=== PATIENT | female | born 1990 | race Caucasian/White ===

== ENCOUNTER → 2019-10-23 | Outpatient (CLI) | payer BC ==
[~2019-10-23] MED LIST: BIMA5DRO2 TP; DEXT10TA23 PO; HYDR-2765 PO; LEVO1TAB38 PO
--- NOTE | 2019-10-23 13:51 | RAD ---
STUDY: MRI of the right knee without contrast INDICATION: Persistent right knee pain after a fall one year prior. COMPARISON: 09/23/2019 radiographs. TECHNIQUE: Multiplanar MR imaging of the right knee performed without the use of intravenous or intra-articular contrast. FINDINGS: Menisci: Intact. Cruciate ligaments: Intact. Collateral ligaments: Unremarkable medial and lateral collateral ligament structures. The IT band is normal. Intact retinacula. Tendons: The distal quadriceps and patellar tendon are intact. The additional tendons at the knee are unremarkable. Normal musculature signal and bulk. Cartilage: Patellofemoral: Very heterogeneous patellar cartilage with the subjacent bone plate exhibiting an irregular morphology as well such as seen on image 11 series 5. Subchondral marrow edema present as well mainly along the lower half of the median ridge. Full-thickness fissure seen on image 14 series 7 and there may be some deep delamination extending from this fissure as well. Lateral compartment: Intact. Medial compartment: Intact. Bones: No acute fracture or aggressive marrow signal abnormality. TT-TG distance measuring 1.5 cm. Borderline patella jerry with an Insall-Salvati ratio of just under 1.2. Miscellaneous: Small volume knee joint fluid. Linear low intensity signal focus at the lateral meniscotibial recess, image 12 series 8, does not appear to represent a loose body. Trace fluid within the prepatellar bursa with hypointense scarring overlying this bursa such as seen on image 16 series 6. IMPRESSION: 1. Intact menisci, cruciate ligaments and collateral ligaments. 2. Abnormally heterogeneous patellar cartilage most notably along the lower half of the median ridge with subchondral marrow edema. Full-thickness fissure at the median ridge, image 14 series 7, possibly with a deep delaminating component extending from this fissure as seen on image 11 series 5. No significant chondrosis seen elsewhere. 3. Borderline patella jerry. Within normal limits TT-TG distance. 4. Trace fluid within the prepatellar bursa with overlying scarring suggests prior trauma to this region. Electronically signed by: GAUTAM TINAJERO MD (10/23/2019 1:48 PM) [id number]
== END | disposition home or self-care (01) ==
LOC: MRI 08:36
PROVIDERS: ATTEND Orthopaedic Surgery
DX: M22.41 Chondromalacia patellae, right knee (principal); M70.41 Prepatellar bursitis, right knee; R60.0 Localized edema
CPT/HCPCS: 73721

== ENCOUNTER → 2019-12-06 | Outpatient (CLI) | payer BC | END | disposition home or self-care (01) | LOC: LAB 14:35 | PROVIDERS: ATTEND Orthopaedic Surgery | DX: Z20.828 Contact with and (suspected) exposure to other viral communicable diseases (principal) | CPT/HCPCS: U0003-CS ==

== ENCOUNTER → 2019-12-10 | Day surgery (SDC) | payer BC ==
[~2019-12-10] VITALS: Ht 6 cm; Wt 81.6 kg
[~2019-12-10] MED LIST changes: +BUPIVACAINE MPF 0.25% 30 ML VIAL. ONE; +BUPIVACAINE-EPI 0.5%-1:200000 MPF 30 ML VIAL. ONE; +DEXAMETHASONE SOD PHOS 4 MG/ML VIAL ONE; +EPINEPHrine VIAL 30 MG/30 ML VIAL ONE; +HYDROcodone/APAP 7.5/325MG 1 TAB TABLET PO PRN; +HYDROmorphone 2 MG/ML VIAL IV PRN; +IV RINGERS,LACTATED 1000ML 1,000 ML IV SCH; +KETOROLAC 30 MG/ML VIAL. ONE; +LIDOCAINE 1% PF 2 ML VIAL. ID PRN; +LIDOCAINE 2% PF 5 ML VIAL. ONE; +MIDAZOLAM HCL/PF 2 MG/2 ML VIAL. ONE; +MORPHINE SULFATE 2 MG/ML VIAL. IV PRN; +ONDANSETRON PF 4 MG/2 ML VIAL. IV PRN; +ONDANSETRON PF 4 MG/2 ML VIAL. ONE; +PROCHLORPERAZINE 10 MG/2 ML VIAL. IV PRN; +PROPOFOL 10 MG/ML (20ML) VIAL. IV ONE; +SEVOFLURANE 61 TO 120 MINUTES. IH ONE; +fentaNYL PF VIAL 100 MCG/2 ML VIAL IV PRN; +fentaNYL PF VIAL 100 MCG/2 ML VIAL ONE
--- NOTE | 2019-12-10 13:51 | PDOC1 ---
History and Physical Date of Admission Date of Admission DATE: 12/10/19 TIME: 13:46 Identification/Chief Complaint Chief Complaint Right knee pain Source Source: Chart review, Patient History of Present Illness History of Present Illness This 29-year-old young lady injured her knee more than a year and a half ago. On my initial examination I felt like she had some underlying patellar malalignment (slight patella jerry and patellar tilt), but has caused an injury to the patellar cartilage and she has been treated nonoperatively for chondromalacia. Despite injections, physical therapy, and prolonged nonoperative treatment she still has pain, crepitus, and a theater sign. MRI shows chondromalacia, and slight patella jerry. There is underlying patellar malalignment. She is here today for arthroscopy and chondroplasty, and possible lateral release. Social History Smoke: No ALCOHOL: occassional Current Medications Current Medications Current Medications Ondansetron HCl (Zofran) 4 mg PRN Q6HRS PRN IV NAUSEA/VOMITING; Start 12/10/19 at 07:00; Stop 12/11/19 at 06:59 Fentanyl Citrate (Fentanyl 2ml Vial) 25 mcg PRN Q5MIN PRN IV MILD PAIN 1-3; Start 12/10/19 at 07:00; Stop 12/11/19 at 06:59 Fentanyl Citrate (Fentanyl 2ml Vial) 50 mcg PRN Q5MIN PRN IV MODERATE TO SEVERE PAIN; Start 12/10/19 at 07:00; Stop 12/11/19 at 06:59 Morphine Sulfate (Morphine Sulfate) 1 mg PRN Q10MIN PRN IV SEVERE PAIN 7-10; Start 12/10/19 at 07:00; Stop 12/11/19 at 06:59 Ringer's Solution 1,000 ml @ 30 mls/hr Q24H IV Last administered on 12/10/19at 12:27; Start 12/10/19 at 07:00; Stop 12/10/19 at 18:59 Lidocaine HCl (Xylocaine-Mpf 1% 2ml Vial) 2 ml PRN 1X PRN ID PRIOR TO IV START; Start 12/10/19 at 07:00; Stop 12/11/19 at 06:59 Hydromorphone HCl (Dilaudid) 0.5 mg PRN Q10MIN PRN IV SEV PAIN, Second choice; Start 12/10/19 at 07:00; Stop 12/11/19 at 06:59 Prochlorperazine Edisylate (Compazine) 5 mg PACU PRN PRN IV NAUSEA, MRX1; Start 12/10/19 at 07:00; Stop 12/11/19 at 06:59 Cefazolin Sodium/ Dextrose 50 ml @ 100 mls/hr 1X PREOP PRN IV PRIOR TO PROCEDURE; Start 12/10/19 at 06:00; Stop 12/10/19 at 18:00 Epinephrine HCl (Adrenalin) 30 mg STK-MED ONCE .ROUTE ; Start 12/10/19 at 11:42; Stop 12/10/19 at 11:42; Status DC Bupivacaine HCl (Sensorcaine Mpf 0.25%) 30 ml STK-MED ONCE .ROUTE ; Start at 11:42; Stop 12/10/19 at 11:42; Status DC Midazolam HCl (Versed) 2 mg STK-MED ONCE .ROUTE ; Start 12/10/19 at 13:13; Stop 12/10/19 at 13:13; Status DC Sevoflurane (Ultane) 60 ml STK-MED ONCE IH ; Start 12/10/19 at 13:13; Stop 12/10/19 at 13:13; Status DC Dexamethasone Sodium Phosphate (Decadron) 4 mg STK-MED ONCE .ROUTE ; Start 12/10/19 at 13:13; Stop 12/10/19 at 13:13; Status DC Propofol (Diprivan) 200 mg STK-MED ONCE IV ; Start 12/10/19 at 13:13; Stop 12/10/19 at 13:13; Status DC Lidocaine HCl (Lidocaine Pf 2% Vial) 5 ml STK-MED ONCE .ROUTE ; Start 12/10/19 at 13:13; Stop 12/10/19 at 13:13; Status DC Ondansetron HCl (Zofran) 4 mg STK-MED ONCE .ROUTE ; Start 12/10/19 at 13:13; Stop 12/10/19 at 13:14; Status DC Ketorolac Tromethamine (Toradol 30mg Vial) 30 mg STK-MED ONCE .ROUTE ; Start 12/10/19 at 13:13; Stop 12/10/19 at 13:14; Status DC Bupivacaine HCl/ Epinephrine Bitart (Sensorcain-Epi 0.5%-1:[id number] Mpf) 30 ml STK-MED ONCE .ROUTE ; Start 12/10/19 at 13:41; Stop 12/10/19 at 13:41; Status DC Active Scripts Active Reported Latisse (Bimatoprost) 5 Ml Drop.w.joanna 5 Ml TP HS Adderall 10 Mg Tablet (Dextroamphetamine/Amphetamine) 10 Mg Tablet 10 Mg PO PRN PRN Sronyx (Levonorgestrel-Eth Estradiol) 1 Each Tablet 1 Each PO HS Allergies Allergies: Coded Allergies: No Known Drug Allergies (Unverified , 12/10/19) Physical Exam General: Alert, Cooperative HEENT: Atraumatic Lungs: Normal air movement Heart: RRR Extremities: No cyanosis, No edema, Normal pulses, Other (The RIGHT knee shows normal alignment, no masses and trace effusion. There is tenderness at the m edial joint line and a positive medial Sherrell's test. The lateral joint line shows no tenderness. Range of motion is 0-135 degrees. There is trace patellofemoral crepitus. Prominent extraarticular bone, likely from heterotopic ossification from remote trauma. Sherrell's test is positive. There is medial joint line pain with deep flexion and especially with rotation of the tibia. The knee is stable to varus and valgus stress without subluxation or laxity. The ACL feels intact on Asher testing. Muscle strength is normal (5/5) for quadriceps and hamstrings, and muscle tone is normal. The skin shows a well healed scar but is otherwise normal with no rashes, lesions or ulcers. Light touch sensation is intact. No edema and no varicosities. Dorsalis pedis pulse is intact and capillary refill is normal) Skin: No significant lesion Neuro: Normal speech, Normal tone, Sensation intact Vitals Vitals Vital Signs Date Time Temp Pulse Resp B/P (MAP) Pulse Ox O2 Delivery O2 Flow Rate FiO2 12/10/19 12:21 98.2 63 16 98 98.2 12/10/19 12:19 123/86 Room Air Labs Labs Laboratory Tests Test 12/10/19 12:16 Bedside Urine HCG, Qualitative Hcg negative (Negative) Laboratory Tests Test 12/10/19 12:16 Bedside Urine HCG, Qualitative Hcg negative (Negative) Images Images [facility] [address] [place] [address] IMAGING REPORT Signed PATIENT: SUSHILA MILLER ACCOUNT: [id number] : 1990 LOCATION: MRI AGE: 29 SEX: F EXAM STATUS: REG CLI ORD. PHYSICIAN: SAW GARCIA MD REASON: RIGHT KNEE PAIN POST FALL 1 YEAR AGO, FELT RECENT POP WHILE DOING BOX JUMPS PROCEDURE: LOWER EXT JOINT WO RT STUDY: MRI of the right knee without contrast INDICATION: Persistent right knee pain after a fall one year prior. COMPARISON: 09/23/2019 radiographs. TECHNIQUE: Multiplanar MR imaging of the right knee performed without the use of intravenous or intra-articular contrast. FINDINGS: Menisci: Intact. Cruciate ligaments: Intact. Collateral ligaments: Unremarkable medial and lateral collateral ligament structures. The IT band is normal. Intact retinacula. Tendons: The distal quadriceps and patellar tendon are intact. The additional tendons at the knee are unremarkable. Normal musculature signal and bulk. Cartilage: Patellofemoral: Very heterogeneous patellar cartilage with the subjacent bone plate exhibiting an irregular morphology as well such as seen on image 11 series 5. Subchondral marrow edema present as well mainly along the lower half of the median ridge. Full-thickness fissure seen on image 14 series 7 and there may be some deep delamination extending from this fissure as well. Lateral compartment: Intact. Medial compartment: Intact. Bones: No acute fracture or aggressive marrow signal abnormality. TT-TG distance measuring 1.5 cm. Borderline patella jerry with an Insall-Salvati ratio of just under 1.2. Miscellaneous: Small volume knee joint fluid. Linear low intensity signal focus at the lateral meniscotibial recess, image 12 series 8, does not appear to represent a loose body. Trace fluid within the prepatellar bursa with hypointense scarring overlying this bursa such as seen on image 16 series 6. IMPRESSION: 1. Intact menisci, cruciate ligaments and collateral ligaments. 2. Abnormally heterogeneous patellar cartilage most notably along the lower half of the median ridge with subchondral marrow edema. Full-thickness fissure at the median ridge, image 14 series 7, possibly with a deep delaminating component extending from this fissure as seen on image 11 series 5. No significant chondrosis seen elsewhere. 3. Borderline patella jerry. Within normal limits TT-TG distance. 4. Trace fluid within the prepatellar bursa with overlying scarring suggests prior trauma to this region. 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 We reviewed her MRI images previously, and discussed the natural history of the condition as well as the risks, benefits, and alternatives to treatment. Due to her continued symptoms despite past nonoperative treatment, my recommendation at this point is arthroscopy with chondroplasty and possible lateral release. We discussed potential risks of arthroscopic surgery, including risks of bleeding, infection, progressive arthritis, blood clots, or other potential surgical or anesthetic complications. We also discussed postoperative treatment and expectations including progression of arthritis following knee arthroscopy. All of her questions were answered and she desires to proceed with surgery . She is here today for elective right knee arthroscopy, chondroplasty, and possible lateral release. Justifications for Admission Other Justification ASW GARCIA MD Dec 10, 2019 13:50
--- NOTE | 2019-12-10 14:34 | PDOC4 ---
Operative Note Operative Note Date of Procedure: December 10, 2019 Preoperative Diagnosis: right knee chondromalacia Postoperative Diagnosis: right knee chondromalacia, right knee synovitis Procedures Performed: right knee arthroscopy with shaving chondroplasty of the patella, and extensive synovectomy multiple compartments, and arthroscopic lat eral release Surgeon: Saw Macedo MD Machine Veneer Repairer: PRISCILA Arredondo Anesthesia: General Estimated Blood Loss: 5 mL Specimens: none Drains: none Complications: none Tourniquet time: 25 minutes at 300 mm Hg Indications for Procedure: The patient is a 29-year-old with right knee pain, unrelieved with nonoperative treatment. Exam and MRI are consistent with chondromalacia, and patellar malalignment. We talked about the risks and benefits of proceeding with an arthroscopic procedure. We talked about potential risks of ongoing pain, progressive arthritis, bleeding, infection, blood clots, or other potential surgical or anesthetic complications. All of the patient's questions about surgery were answered and they desired to proceed. Written consent was obtained. Description of Operation: The patient was identified in the preoperative holding area. The correct right knee was marked by me. The patient was taken to the operating room, where a general anesthetic was used. Preoperative antibiotics were given intravenously. A time-out procedure was performed. A tourniquet was placed on the upper thigh. Local anesthetic 20 mL of 0.5% bupivacaine was injected using sterile technique into the knee joint. The limb was prepared circumferentially with ChloraPrep s olution and sterile waterproof arthroscopy drapes were applied. The limb was exsanguinated with an Esmarch bandage and the tourniquet was inflated. Lateral and medial arthroscopy portals were established. There was extensive anterior synovitis in the medial compartment, and synovectomy was performed and a shaving in the medial compartment in order to visualize the meniscus and ar ticular surfaces. The entire knee joint had much more synovitis than is typically encountered, and this is probably due to the chronic inflammation. The quality of the synovium otherwise appeared normal, there was no evidence of PVNS. I spent much of the procedure time shaving synovium from multiple compartments. The medial meniscus was normal and stable to probing.The medial t ibiofemoral joint showed normal articular surfaces so no chondroplasty was required.there was extensive synovitis in the intercondylar notch, and a shaving synovectomy was performed to visualize the anterior cruciate ligament. The intercondylar notch was free of loose bodies, and the ACL was intact. The lateral tibiofemoral joint showed anterior synovitis, and I could not visual ize the lateral compartment. I performed shaving synovectomy in the lateral compartment until the lateral meniscus and lateral articular surfaces could be visualized. The lateral meniscus was normal. The lateral articular surfaces showed chondromalacia Outerbridge grade I, so no chondroplasty was required. There is fissuring and fibrillation of the lateral tibial cartilage. There were several cartilaginous tiny fragments which are probably from the patella which were irrigated with the shaver. The patellofemoral joint showed extensive chondromalacia with some nearly full- thickness flaps but no exposed bone. This is Outerbridge grade 3, and has an area of 10 x 15 mm of high-grade cartilage loss and fragmentation but no exposed bone. Shaving chondroplasty was performed back to a smooth stable base. The suprapatellar pouch, medial and lateral gutters were free of loose bodies or additional cartilaginous bodies. Patellar tracking was assessed arthroscopically, at the patella is tilted laterally. An arthroscopic lateral release was performed with the Fieldglass thermal energy device from the distal portion of the vastus lateralis, to the lateral portal. Evaluation of patellar tracking after the release shows improved alignment and less tilt of the patella and better patellofemoral contact with slight flexion. Copious irrigation was used to drain all chondral fragments, and the knee was drained of fluid. The portals were closed with #3-0 Prolene interrupted sutures. Additional local anesthetic, 20 mL of 0.5% bupivacaine with epinephrine was injected. A bulky sterile dressing was applied and the tourniquet was released. Needle and sponge counts were correct and there were no apparent complications. SAW MACEDO MD Dec 10, 2019 14:34
[2019-12-10] MEDS: fentaNYL PF VIAL 100 MCG/2 ML VIAL IV PRN ×3 (14:50→15:17)
[2019-12-10 14:55] VITALS: BP 121/70
== END | disposition home or self-care (01) ==
LOC: SURG 11:52
PROVIDERS: ATTEND Orthopaedic Surgery
DX: M94.261 Chondromalacia, right knee (principal); M65.861 Other synovitis and tenosynovitis, right lower leg; M19.90 Unspecified osteoarthritis, unspecified site; Z91.81 History of falling; Z79.899 Other long term (current) drug therapy
CPT/HCPCS: 29876; 81025; A7015; C1782; J0171; J0690; J1100; J1885; J2250; J2405; J2704; J3010; J3490

== ENCOUNTER → 2019-12-16 | Outpatient (CLI) | payer BC ==
[2019-12-10 14:55] VITALS: BP 121/70
[~2019-12-16] MED LIST changes: -BUPIVACAINE MPF 0.25% 30 ML VIAL. ONE; -BUPIVACAINE-EPI 0.5%-1:200000 MPF 30 ML VIAL. ONE; -DEXAMETHASONE SOD PHOS 4 MG/ML VIAL ONE; -EPINEPHrine VIAL 30 MG/30 ML VIAL ONE; -HYDROcodone/APAP 7.5/325MG 1 TAB TABLET PO PRN; -HYDROmorphone 2 MG/ML VIAL IV PRN; -IV RINGERS,LACTATED 1000ML 1,000 ML IV SCH; -KETOROLAC 30 MG/ML VIAL. ONE; -LIDOCAINE 1% PF 2 ML VIAL. ID PRN; -LIDOCAINE 2% PF 5 ML VIAL. ONE; -MIDAZOLAM HCL/PF 2 MG/2 ML VIAL. ONE; -MORPHINE SULFATE 2 MG/ML VIAL. IV PRN; -ONDANSETRON PF 4 MG/2 ML VIAL. IV PRN; -ONDANSETRON PF 4 MG/2 ML VIAL. ONE; -PROCHLORPERAZINE 10 MG/2 ML VIAL. IV PRN; -PROPOFOL 10 MG/ML (20ML) VIAL. IV ONE; -SEVOFLURANE 61 TO 120 MINUTES. IH ONE; -fentaNYL PF VIAL 100 MCG/2 ML VIAL IV PRN; -fentaNYL PF VIAL 100 MCG/2 ML VIAL ONE
--- NOTE | 2019-12-16 15:14 | RAD ---
Right lower extremity venous duplex Doppler ultrasound HISTORY: Right leg pain and swelling. FINDINGS: No DVT by grayscale sonography with compressibility, patent color Doppler blood flow and augmentation of blood flow the right common femoral vein, profunda femoral vein, superficial femoral vein and popliteal vein. No DVT with patent color Doppler blood flow the right posterior tibial peroneal veins in the calf. IMPRESSION: Negative right leg for DVT. Electronically signed by: Fabricio Yuen MD (12/16/2019 3:11 PM) [facility]
== END | disposition home or self-care (01) ==
LOC: RAD 14:39
PROVIDERS: ATTEND Orthopaedic Surgery
DX: M79.661 Pain in right lower leg (principal)
CPT/HCPCS: 93971